=== PATIENT | female | born 1945 | race Caucasian/White ===

== ENCOUNTER 2023-01-04 10:30 | Outpatient (RCR) | payer MEDICARE, SELFPAY ==
--- NOTE | 2022-11-03 14:46 | PT.OPEX ---
PT [place] [facility] Eval INITIAL EVALUATION MEDICARE REQUIRES SIGNATURE PT [facility] Outpatient Eval Start: 11/03/22 12:22 Freq: Status: Active Protocol: Document 11/03/22 12:22 IRMA (Rec: 11/03/22 14:43 IRMA [id number]) E-signed By Goyo Aquino DPT Physical Therapy Outpatient Evaluation Insurance Information Recert Due Date 01/27/23 Insurance Name Medicare B Medical Diagnosis R hip arthritis R EDE DOS 11/10/22 Treating Diagnosis R hip pain muscle weakness Referring MD Timothy hyatt Subjective Subjective Hollie comes into clinic today 1 week prior to her R EDE surgery for a pre op visit. Has been dealing with the R hip pain on and off for about a year. At night she notices she has trouble getting in and out of bed. Along with getting dressed and undressed. Currently uses SPC but was not using prior to this year. Does have a garden where she wants to get back into that, is also wanting to play tennis some again. Does have 15 stairs in her house she has to do but has a railing on the L side. Her friend is going to stay with her/staying with her friend for several days after the surgery. Pain Comments 8/10 pain currently Date of Surgery (If applicable) 11/10/22 Current Work Status Light Duty Precautions Treatment Precautions/Contraindications hx of vertigo Objective Other/Pertinent Objective GAIT: ambulates in step to pattern, knee flexed with stance, using SPC on L HIP ROM Flexion: 95-100 degrees Internal Rotation: could not assess past 10 degrees due to pain External Rotation 20 degrees before pain abd LLE MMT: WNL on L deferred standard testing due to pain and guarding SLR unable due to pain minimal quad - assists using alt leg TX: long sitting quad set x10 w/5 sec isometric hold performed ankle pumps x10 supine glute sets x10 w/3-5 sec isometric hold supine hamstring sets x10 w/3- 5 sec isometric hold supine heel slide x 10 w/3-5 sec hold at end range holding for stretch standing hip abd with UE support x 10 B educated on frequency to perform HEP post operatively Assessment Assessment/Impression Pt is a 77 yr old female who presents with concerns of R hip pain. Patient also has notable objective findings including limited ROM, impaired balance, decreased strength also likely contributing to the problem. Patient is a good candidate for skilled therapy to target deficits described above. Skilled PT intervention is necessary for use of therapeutic exercise manual therapy, neuromuscular re- education, gait training, and therapeutic activity. Functional impairments include difficulty with: walking, standing stairs bed mobility and stairs . See appropriate sections of PT eval for complete list of goals and POC . D/C plan and criteria is for pt to achieve the goals as listed below or until max rehab potential is met. 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 2) Pt will improve hip AROM at least 0-90* for improved sit to stand transfers 3) Patient will ascend/descend at least 12 steps using single rail and reciprocal pattern to improve ease of mobility at home/community 4)Pt will ambulate at least 30 -45 minutes with least restrictive device, minimal antalgic gait for improved community mobility Coordination/Communication With Referral Source Treatment Plan/Direct Interventions Gait Training,Joint Mobilization,Manual Therapy, Neuromuscular Re-ed,Self-Care/ Home Management,Therapeutic Activities,Therapeutic Exercises Patient Will Be Discharged From Therapy Completion of LTG(s), Independent w/HEP Evaluation Billing Untimed Code Treatment Minutes 25 Complexity Low Certification Information Initial Certification Date 11/03/22 Ending Certification Date 01/27/23 Physician Comment/Change : Physician NPI Number #
--- NOTE | 2022-12-21 10:52 | PC.SOCIAL ---
Social work: Received call from pt regarding need for resources. Pt states she recently had hip surgery and is scheduled for surgery on her other hip at the end of December. Pt states she had a friend helping her after her previous surgery, but that this was challenging for her friend and did not work well for her. Pt is interested in hiring home health registered nurse care. Questions regarding home health registered nurse care were answered. Pt has resource list of home health registered nurse care agencies and will call to arrange for this help at home for her recovery after upcoming surgery. Pt is not interested in going to an assisted living or residential after surgery and hopes to return home with hired assistance. Pt was appreciative of information provided. Pt is aware of how to contact this social economist if she has additional questions or need for resources.
== END 2023-01-04 11:37 | disposition home or self-care (01) ==
PROVIDERS: PCP Family Medicine; Visit Provider Orthopaedic Surgery Sports Medicine
DX: M16.11 Unilateral primary osteoarthritis, right hip (principal); Z96.641 Presence of right artificial hip joint; M62.81 Muscle weakness (generalized); M25.551 Pain in right hip; Z51.89 Encounter for other specified aftercare
CPT/HCPCS: 97110; 97112; 97161; 97164; 97530

== ENCOUNTER 2023-01-17 09:52 | Outpatient (CLI) | payer MEDICARE, SELFPAY | END 2023-01-17 09:53 | disposition home or self-care (01) | PROVIDERS: PCP Family Medicine; Visit Provider Orthopaedic Surgery Sports Medicine | DX: Z01.818 Encounter for other preprocedural examination (principal) | CPT/HCPCS: 36415; 86850; 86900; 86901 ==

== ENCOUNTER 2023-01-19 07:20 | Day surgery (SDC) | payer MEDICARE, SELFPAY ==
[2023-01-19] VITALS (31 sets, daily range): BP systolic 92–139; BP diastolic 48–81; PULSE 61–99; RESP 12–18; TEMP 35.9–36.6; O2SAT 95–100; BMI 27.1
--- NOTE | 2023-01-19 07:32 | CRLHL7_ITS ---
For Patients: As a result of the Cures Act, medical imaging exams and procedure reports are released immediately into your electronic medical record. You may view this report before your referring provider. If you have questions, please contact your health care provider. Indication: s/p Total hip arthroplasty Technique: AP pelvis and lateral view left hip Findings/Impression: Hardware from a left total hip arthroplasty is in satisfactory position. Bone alignment is normal. No sign of acute fracture. Postop changes are within normal limits. Dictated by Wale Momin MD @ 01/19/2023 1:05:23 PM (Electronically Signed)
[2023-01-19] MEDS: ACETAMINOPHEN 500 MG TABLET 1000 MG PO ×3 (08:00→19:33)
[2023-01-19] MEDS: OXYCODONE (CR) 10 MG TAB.ER.12H PO (08:00)
[2023-01-19] MEDS: CELECOXIB 200 MG CAPSULE PO ×2 (08:00→21:36)
[2023-01-19] MEDS: SODIUM CHLORIDE 0.9 % (FLUSH) 10 ML SYRINGE IVF (08:10)
[2023-01-19] MEDS: LACTATED RINGERS 1000 ML 1,000 ML 100 ML IV (08:10)
--- NOTE | 2023-01-19 08:45 | CRLHL7_ITS ---
For Patients: As a result of the Cures Act, medical imaging exams and procedure reports are released immediately into your electronic medical record. You may view this report before your referring provider. If you have questions, please contact your health care provider. Indication: Hip replacement surgery Technique: AP hip fluoroscopic image. Fluoroscopy time 19.3 seconds. Findings/Impression: Hardware from a left total hip arthroplasty is in satisfactory position. Dictated by Wale Momin MD @ 01/19/2023 11:14:26 AM (Electronically Signed)
[2023-01-19] MEDS: MIDAZOLAM HCL 1 MG/ML inj IVP (08:53)
[2023-01-19] MEDS: fentaNYL 100 MCG/2 ML inj IVP (08:53)
--- NOTE | 2023-01-19 09:06 | SUR.PREOP ---
TIME?OUT:?0852 PT/Polly Devine RN/Dr. Jeronimo MDA?VERIFICATION?OF?SURGICAL?SITE left hip,?PROCEDURE,?AND?CONSENT OBTAINED?PRIOR?TO?INVASIVE?PROCEDURE.
[2023-01-19] MEDS: CEFAZOLIN 2 GM in 0.9 % SODIUM CHLORIDE Mini-bag 100 ML IVPB (09:35)
--- NOTE | 2023-01-19 09:47 | P.NB_ITS ---
Nerve Block Nerve Block Time Seen by Provider: 08:57 Date Seen: 01/19/23 Type of block requested by surgeon for post-operative analgesia: JAMESON/LFCN Side: left Time out performed: Yes Verification of patient name: Yes Verification of date of : Yes Site marking: site marked Name of person performing procedure: Jeronimo Continuous monitoring Was continuous monitoring of O2 sat, B/P, residential monitor, recorded every 15 minutes?: Yes Procedure Checklist: sterile prep, needles and gloves Ultrasound guided. Images saved: Yes Medications given in 5ml increments after negative aspiration: Ropivicaine %: 0.5 mL: 30 Needle gauge: 20 Decadron (mg): 10 Precedex (mcg): 25 Patient tolerated procedure well: Yes Additional comments: Needle noted below psoas tendon needle noted adjacent to LFCN Block Charges Block Charge (with Pro Fee): Other Periph Nerve Block Use of Ultrasound Machine for Block: Yes- US Guidance/pain block
--- NOTE | 2023-01-19 09:48 | W.ANESCHARGE ---
Anesthesia Charges Start Date/Time Anesthesia Start Date: 01/19/23 Anesthesia Start Time: 09:28 Stop Date/Time Anesthesia Stop Date: 01/19/23 Anesthesia Stop Time: 12:00 Summary Extremes of Age - Over 70 or under 1: MDA
--- NOTE | 2023-01-19 11:09 | PM.ORPRC ---
Procedure Note Date of procedure: 01/19/23 Procedure: PREOPERATIVE DIAGNOSIS: 1. Left hip osteoarthritis, severe, primary POSTOPERATIVE DIAGNOSIS: 1. Left hip osteoarthritis, severe, primary PROCEDURE: 1. Left total hip arthroplasty-anterior approach 2. 48873 - intraoperative fluoroscopy up to 1 hour. SURGEON: Timothy Ignacio MD. CORPORATE DIRECTOR OF PHARMACY: Brenna Guan PA-c; JAMIA Yang - Of note, a skilled mortgage assistant was critical for this case to aid in patient positioning, tissue retraction, limb manipulation/positioning, dislocation/relocation, patient safety, and closure. ANESTHESIA: Spinal anesthetic EBL: 300 mL IMPLANTS: DePuy J&J uncemented total hip [place] cup size 48, hole eliminator, +0 neutral liner Actis stem, standard offset, size 5 +5 mm ceramic 32mm head. COMPLICATIONS: None evident INDICATIONS: The patient is a pleasant 77-year-old female who has experienced severe left hip pain and difficulty bearing weight. Workup included x-rays which revealed severe osteoarthrosis in the hip. Given the deformity, the dysfunction, and the pain, as well as the failure of nonoperative management, recommendation was made for surgery. FINDINGS: Full-thickness chondral loss broadly throughout the femoral head. Significant osteophytosis around the femoral head/neck junction. Small effusion upon entering the joint. DESCRIPTION OF PROCEDURE: Following a thorough discussion of risks, benefits, and alternatives consent was obtained and the left hip was marked. The patient was brought to the operating room and placed supine on the operating table. Induction of anesthesia was undertaken. 1 g IV Ancef and 1 g tranexamic acid was administered within 1 hr of incision preoperatively. Proper time-out was performed identifying proper patient, site, procedure. The operative extremity was prepped and draped in the appropriate sterile fashion using ChloraPrep after the patient was positioned on the [place] table with head in neutral alignment and all bony prominences well padded. C-arm fluoroscopic imaging was utilized to confirm proper pelvis rotation and position, and to get true AP films of both the contralateral left, and the affected left hip. This is for comparison. A longitudinal incision was made starting approximately 1 cm distal to the ASIS, and 3-4 cm lateral. The incision was extended distally aiming toward the lateral border the patella. Sharp incision through skin and bovie cautery through the subcutaneous tissue allowed identification of the TFL fascia. This was sharply divided, and the fascia bluntly released from the muscle fibers as we dissected medial. Upon coming to the medial border, we were able to retract the TFL laterally, and penetrated the deeper fascia and identify the crossing circumflex vessels. These were ligated/cauterized. The rectus was elevated from the capsule, and retractors placed laterally and medially along the femoral neck to help with visualization of the capsule. We then performed an inverted T capsulotomy. The capsule was tagged for later repair. Retractors were placed inside the capsule. The femoral neck was visualized after releasing medially down to the lesser trochanter, along the saddle laterally, and up onto the acetabulum. The femoral neck cut was made in line with our preoperative templating. The head was removed in a single piece, and sized. We turned our attention to acetabular preparation. Initially, the labrum was resected from around the perimeter, the pulvinar was excised, allowing us to visualize the false wall. We started the reaming with a 43 mm reamer. This was medialized down to the true wall. We then enlarged our reamers sequentially up to one size less than the selected cup size. We trialed at the same size and found it to have an excellent fit. The selected cup was then opened, inserted, and impacted in line with the goal of 40-45? of abduction, and 20-25? of anteversion. This was confirmed on C-arm fluoroscopic imaging to be in the appropriate/goal position. Once the cup was placed we placed a hole eliminator and a liner consistent with preop planning. Attention was turned to the femoral preparation. The limb was extended, externally rotated, and adducted. The posteromedial capsule was released, as retractors were placed allowing excellent access to the proximal femur. Initially a box sealing machine feeder was followed by canal finder followed by various broaches. We broached sequentially up to size noted above, found it to have excellent rotational control, and trialing various heads and necks, revealed that appropriate neck offset, and the above noted head size provided the greatest stability, and episcopalian of length, and offset. C-arm fluoroscopic imaging confirmed position of the stem, as well as leg lengths, which were compared with the pre procedure all fluoroscopic images. Trial implants were removed, the real femoral stem inserted, as was the ceramic head. After reducing, the leg was placed through range of motion and stability was confirmed anterior, posterior, and lateral. A 3 min Betadine soak was then performed, and thorough irrigation with normal saline followed. Closure of the capsule was performed with #1 PDS. Bleeding was confirmed to be controlled at this stage, and the TFL fascia was closed with #0 strata fix. Subcutaneous, and subcuticular closure was performed with 2-0 Vicryl and 4-0 Monocryl, respectively. Dressings were applied, and the patient was awoken from anesthesia and transferred the PACU in stable condition. A skilled mortgage assistant was critical for this case to aid in patient positioning, tissue retraction, proximal femur exposure, limb manipulation/positioning, dislocation/relocation, patient safety, and closure. PLAN: 1. Weight bear as tolerated operative extremity. 2. 23 hr perioperative antibiotics. 3. Ice. 4. PT/OT consults for ambulation assistance/mobility education. 5. Social work consult for discharge planning. 6. DVT prophylaxis with at SCDs, Curtis Hose, and Xarelto x5 days followed by aspirin for a total of 1 month..
--- NOTE | 2023-01-19 11:24 | SUR.OPER ---
TRANSFERRED PATIENT TO TRIAL OPERATING TABLE AND COULDN'T POSITION PATIENT'S LEFT ARM WITHOUT PATIENT HAVING PAIN. SURGEON AND P.A. DECIDED TO CHANGE OPERATING TABLE BACK TO THE HANA TABLE.
--- NOTE | 2023-01-19 12:00 | W.ANESCHARGE ---
Anesthesia Charges Start Date/Time Anesthesia Start Date: 01/19/23 Anesthesia Start Time: 09:28 Stop Date/Time Anesthesia Stop Date: 01/19/23 Anesthesia Stop Time: 12:00
--- NOTE | 2023-01-19 12:13 | PM.IMPN1 ---
Progress Note: A&P Assessment and plan (1) Osteoarthritis of left hip: Problem details: severe Status: Chronic Assessment and Plan: 1) Left EDE -pain control; diet; dvt ppx per surgery Subjective Date Seen: 01/19/23 Interval history: POSTOPERATIVE DIAGNOSIS: 1. Left hip osteoarthritis, severe, primary ANESTHESIA: Spinal anesthetic EBL: 300 mL the patient is stable following surgery denies chest pain, sob, nausea, vomiting tolerating diett Exam Narrative: Exam Narrative: Gen: no acute distress HEENT: NCAT EOMI mmm CV: RRR normal s1 s2 Lungs: CTAB Abd: Soft,nt, nd Neuro: Alert, oriented, CN grossly intact; nonfocal screening?exam Psych: appropriate affect MSK: age appropriate muscle mass Skin; Warm, dry no rash on face Const: Vital Signs, click to edit/add: Vital Signs - 24 hr 01/19/23 08:29 01/19/23 08:53 01/19/23 08:55 Temperature 97.5 F L Pulse Rate 74 69 73 Respiratory Rate 16 16 16 Blood Pressure 126/71 127/55 L 119/48 L Pulse Oximetry 97 100 98 Oxygen Delivery Me thod Room Air Nasal Cannula Nasal Cannula Oxygen Flow Rate 2 2 01/19/23 09:00 01/19/23 09:15 01/19/23 11:57 Temperature 97.6 F Pulse Rate 64 61 85 Respiratory Rate 16 16 12 Blood Pressure 106/62 94/55 L Pulse Oximetry 98 98 94 Oxygen Delivery Me thod Nasal Cannula Nasal Cannula Oxygen Flow Rate 2 2 01/19/23 11:58 01/19/23 12:00 01/19/23 12:02 Temperature Pulse Rate 82 86 87 Respiratory Rate 14 12 12 Blood Pressure 110/72 95/71 Pulse Oximetry 97 97 99 Oxygen Delivery Me thod Oxygen Flow Rate 01/19/23 12:03 01/19/23 12:07 Temperature Pulse Rate 92 85 Respiratory Rate Blood Pressure 98/74 Pulse Oximetry 99 100 Oxygen Delivery Me thod Oxygen Flow Rate
[2023-01-19] MEDS: HYDROmorphone 0.5 mg/0.5 ml inj IVP (13:34)
[2023-01-19] MEDS: CEFAZOLIN 1 GM in 0.9 % SODIUM CHLORIDE Mini-bag 100 ML IVPB ×2 (13:59→21:37)
[2023-01-19] MEDS: LACTATED RINGERS 1000 ML 1,000 ML 75 ML IV (14:21)
[2023-01-19] MEDS: OXYCODONE 5 MG TABLET PO ×2 (16:11→21:41)
--- NOTE | 2023-01-19 16:34 | PC.NURSE ---
Pt arrived in her hospital bed to room 274 from PACU @ 1250 s/p LTHAA with Dr. Ignacio. Please see initial assessment from PACU and frequent post op VS. Pt had no pain on arrival to floor. Later she rated her pain 5-6 and prn dilaudid 0.5 mg given by RN. Pt tolerated CL lunch w/o nausea. Tylenol ES scheduled dose provided and IV Ancef infused w/o difficulty. Pt very talkative and wide awake on arrival to floor. I talk alot when I'm anxious, calming patch applied with relief. Friend Mahogany supportive and vigilant at bedside. Please see hourly rounding sheet for nsg interventions. PT in to do exercises and walk patient to the bathroom just prior to shift change w/GB and walker. PHI form completed. Belongings list completed preop. Report to Tangela PARKER and Yovana PARKER for evening shift.
--- NOTE | 2023-01-19 20:55 | PC.NURSE ---
End of shift- Post LTH- VSS on RA, HR trending in 90's. Dressing CDI with no drainage present. Ice to op site. Some swelling around incision site. Pt voided 2x this shift for a total of 800 out of clear dark yellow urine. Up to BR SBA w/ gait belt and RW.Pt recieved PRN oxy 1x this shift along with scheduled Tylenol. Pt rated her pain at 4/10 then PRN oxy was given. When scheduled Tylenol was given pt reported 2/10 pain.Tolerating food and liquids with no nausea. Saline locked after dinner. IV abx infused @2200.
[2023-01-19] MEDS: SENNOSIDES 1 TAB TABLET 2 TAB PO (21:36)
[2023-01-20 00:44] VITALS: BP 109/68; PULSE 84; RESP 18; TEMP 36.5; O2SAT 96
[2023-01-20] MEDS: ACETAMINOPHEN 500 MG TABLET 1000 MG PO ×2 (00:46→08:25)
[2023-01-20] MEDS: OXYCODONE 5 MG TABLET PO ×2 (03:31→10:17)
[2023-01-20 03:45] VITALS: BP 126/73; PULSE 89; RESP 16; TEMP 36.4; O2SAT 98
--- NOTE | 2023-01-20 05:36 | PC.NURSE ---
[id number]: A1/walker/GB. Active ice to op site. CMS intact. Dressing to L. hip C/D/I. PRN Oxycodone x1 for pain management. Denies N/V. Eating and voiding.
[2023-01-20 06:43] LABS: Basophils Percent Auto 0.1 % (0.0-3.0); Hemoglobin* 10.9 gm/dL (12.0-16.0); Immature Granulocytes Pct Auto 1.1 %; Lymphocytes Percent Auto 6.8 % (20-44); Mean Corpuscular HGB Conc 33 gm/dL (32-36); Mean Corpuscular Hemoglobin 32 pg (26-34); Mean Corpuscular Volume 97 fL (80-100); Platelet Count* 234 K/uL (140-440); RDW Coefficient of Variation % 12.7 % (11.5-15.5); Red Blood Count 3.42 m/uL (4.00-5.20); White Blood Count* 17.64 K/uL (4.50-11.00)
[2023-01-20 06:54] LABS: Slide Review Reflex No
[2023-01-20 06:55] LABS: Potassium* 4.6 mmol/L (3.6-5.1); Sodium* 135 mmol/L (135-149)
[2023-01-20 06:58] LABS: Creatinine* 0.9 mg/dL (0.5-1.5); Est. Creatinine Clearance* 35.55; Estimated Glomerular Filt Rate 66 ml/min
[2023-01-20 06:59] LABS: Blood Urea Nitrogen* 22 mg/dL (7-30)
--- NOTE | 2023-01-20 07:58 | REH.OT ---
OT: Order received, chart reviewed, when met with patient she reports she is not participating in therapy this morning, and that she called ahead to cancel OT/PT for this morning because she is managing independently. Explained role of OT post op, DME and patient declines participation and plans to have 24 hour caregivers again. Provided AE resources patient requested.
[2023-01-20] MEDS: SENNOSIDES 1 TAB TABLET 2 TAB PO (08:24)
[2023-01-20] MEDS: CELECOXIB 200 MG CAPSULE PO (08:25)
[2023-01-20] MEDS: RIVAROXABAN 10 MG TABLET PO (08:25)
[2023-01-20 08:32] VITALS: BP 107/61; PULSE 74; PULSE 99; RESP 16; TEMP 36.6; O2SAT 98
--- NOTE | 2023-01-20 09:17 | PM.ORPN ---
Subjective Subjective Time Seen by Provider: 08:45 Date Seen: 01/20/23 Principal diagnosis: Status post left hip replacement Interval history: Hollie is comfortable this morning. She will be discharging to home. She has friends lined up to help her for the next 2 weeks. Ortho Exam Narrative Exam Narrative: Alert and oriented x3. Patient is in no acute distress. Converses without labored breathing. Hearing is grossly intact. Ambulates with a walker. Examination of the left hip shows the dressing is intact. No erythema or warmth or sign of infection. Mild soft tissue edema. Mild thigh tenderness. Bilateral calves are soft and nontender. CMS intact left lower extremity. Const Vital Signs, click to edit/add: Vital Signs - 24 hr 01/19/23 11:57 01/19/23 11:58 01/19/23 12:00 Temperature 97.6 F Pulse Rate 85 82 86 Pulse Rate [Left Apical] Pulse Rate [Pulse Oximeter] Respiratory Rate 12 14 12 Blood Pressure 110/72 Blood Pressure [Right Arm] Pulse Oximetry 100 97 97 Oxygen Delivery Method Nasal Cannula Room Air Oxygen Flow Rate 2 01/19/23 12:02 01/19/23 12:03 01/19/23 12:07 Temperature Pulse Rate 87 92 85 Pulse Rate [Left Apical] Pulse Rate [Pulse Oximeter] Respiratory Rate 12 Blood Pressure 95/71 98/74 Blood Pressure [Right Arm] Pulse Oximetry 99 99 100 Oxygen Delivery Method Room Air Room Air Room Air Oxygen Flow Rate 01/19/23 12:08 01/19/23 12:10 01/19/23 12:12 Temperature Pulse Rate 87 85 84 Pulse Rate [Left Apical] Pulse Rate [Pulse Oximeter] Respiratory Rate 12 Blood Pressure 107/67 109/58 L Blood Pressure [Right Arm] Pulse Oximetry 99 100 99 Oxygen Delivery Method Room Air Oxygen Flow Rate 01/19/23 12:15 01/19/23 12:17 01/19/23 12:23 Temperature Pulse Rate 81 78 81 Pulse Rate [Left Apical] Pulse Rate [Pulse Oximeter] Respiratory Rate 12 Blood Pressure 115/75 111/66 Blood Pressure [Right Arm] Pulse Oximetry 99 100 97 Oxygen Delivery Method Room Air Oxygen Flow Rate 01/19/23 12:26 01/19/23 12:31 01/19/23 12:36 Temperature Pulse Rate 80 74 68 Pulse Rate [Left Apical] Pulse Rate [Pulse Oximeter] Respiratory Rate 12 12 12 Blood Pressure 110/69 92/69 108/71 Blood Pressure [Right Arm] Pulse Oximetry 97 99 98 Oxygen Delivery Method Room Air Room Air Room Air Oxygen Flow Rate 2 01/19/23 12:50 01/19/23 13:00 01/19/23 13:15 Temperature 96.7 F L Pulse Rate 63 Pulse Rate [Left Apical] 78 76 Pulse Rate [Pulse Oximeter] 78 76 Respiratory Rate 14 14 14 Blood Pressure Blood Pressure [Right Arm] 126/71 139/76 Pulse Oximetry 99 Oxygen Delivery Method Room Air Room Air Room Air Oxygen Flow Rate 2 01/19/23 13:30 01/19/23 13:45 01/19/23 14:00 Temperature 96.8 F L Pulse Rate Pulse Rate [Left Apical] 82 84 78 Pulse Rate [Pulse Oximeter] 98 96 78 Respiratory Rate 14 16 14 Blood Pressure Blood Pressure [Right Arm] 135/76 120/77 128/78 Pulse Oximetry 98 96 96 Oxygen Delivery Method Room Air Room Air Room Air Oxygen Flow Rate 2 2 01/19/23 14:30 01/19/23 16:07 01/19/23 17:00 Temperature 97.2 F L 97.5 F L Pulse Rate Pulse Rate [Left Apical] 87 Pulse Rate [Pulse Oximeter] 87 95 99 Respiratory Rate 16 16 16 Blood Pressure Blood Pressure [Right Arm] 128/81 115/74 111/78 Pulse Oximetry 96 96 97 Oxygen Delivery Method Room Air Room Air Room Air Oxygen Flow Rate 01/19/23 18:01 01/19/23 19:30 01/20/23 00:44 Temperature 97.5 F L 97.9 F 97.7 F Pulse Rate Pulse Rate [Left Apical] 84 Pulse Rate [Pulse Oximeter] 95 93 Respiratory Rate 18 18 18 Blood Pressure Blood Pressure [Right Arm] 110/68 125/70 109/68 Pulse Oximetry 95 95 96 Oxygen Delivery Method Room Air Room Air Oxygen Flow Rate 01/20/23 03:45 01/20/23 08:32 01/20/23 08:32 Temperature 97.6 F 97.8 F Pulse Rate Pulse Rate [Left Apical] 74 Pulse Rate [Pulse Oximeter] 89 74 99 Respiratory Rate 16 16 16 Blood Pressure Blood Pressure [Right Arm] 126/73 107/61 Pulse Oximetry 98 98 Oxygen Delivery Method Room Air Room Air Oxygen Flow Rate 2 Assessment and Plan Assessment and plan (1) Status post left hip replacement: Problem details: Plan for discharge is today to home if they meet discharge criteria. DVT prophylaxis includes Xarelto 10 mg daily for total of 5 days, then aspirin 81 mg twice daily for 30 days, Curtis stockings x1 month may remove for 1 hr per day, frequent ambulation Remove dressing 1 week. Observe wound and phone Orthopedics with any questions or concerns Use Ice on operative hip unrestricted. Return to clinic in 1 week with PA for a wound check Return to clinic in [address] Ignacio Minimize narcotic use. Wean off and discontinue soon as possible. Activities as tolerated. No strenuous activity. Attend outpt PT Status: Acute
--- NOTE | 2023-01-20 10:35 | PC.NURSE ---
REVIEWED D/C INSTRUCTIONS WITH PATIENT INCLUDING MEDICATION REGIMEN, PAIN CONTROL, S/S OF INFECTION, DVT PROPHYLAXIS, SAFETY. PT VERBALIZED UNDERSTANDING. BELONGINGS FORM REVIEWED AND SIGNED. PT DENIED ANY FURTHER QUESTIONS AT D/C. PT DISCHARGED AT 1030 HOME WITH FRIEND VIA W/C.
== END 2023-01-20 10:30 | disposition home or self-care (01) ==
LOC: OR 07:21 → MEDSURG 07:23
PROVIDERS: PCP Family Medicine; Visit Provider Orthopaedic Surgery Sports Medicine
PROC: (CPT 27130; principal; 2023-01-19 08:45)
DX: M16.12 Unilateral primary osteoarthritis, left hip (principal); G89.18 Other acute postprocedural pain
CPT/HCPCS: 27130; 01214; 36415; 64450; 73501; 76000; 76942; 82565; 84132; 84295; 84520; 85025; 97110; 97116; 97161; 99100; A9270; C1776; J0690; J1100; J1170; J2250; J2405; J2704; J2795; J3010; J7120

== ENCOUNTER 2023-05-12 10:15 | Outpatient (RCR) | payer MEDICARE, SELFPAY ==
--- NOTE | 2023-01-28 11:26 | PT.OPEX ---
[facility] initial eval requires signature [facility] Start: 01/28/23 07:34 Freq: Status: Active Protocol: Document 01/28/23 07:36 IRMA (Rec: 01/28/23 11:24 IRMA [id number]) E-signed By BARBER [facility] Evaluation Insurance Information Recert Due Date 04/23/23 Insurance Name Medicare B Medical Diagnosis s/p L gisele - dos 01/19/23 Treating Diagnosis left hip pain and weakness Referring MD baylee hyatt Subjective Subjective Hollie returns to PT after having her L GISELE on 01/19/23. Overall she states she is doing a lot better with things ; able to clean, walk in the garden, etc. Still notes that she is still having trouble with donning socks and shoes. Is curious when she can begin driving. Pain Comments 07/06 with walking Date of Surgery (If applicable) 01/19/23 Current Work Status Retired Objective Other/Pertinent Objective GAIT: increased pace, using fww minimal UE support, without AD narrow [place], decreased stride length HIP ROM Flexion: 65 arom, prom +5 Extension: neutral Internal Rotation: 10 degrees before guarding External Rotation 26 degrees before guarding Abduction LLE MMT: slr flexion: can perform with extensor lag of 5-8 degrees increased lumbar lordosis to perform quad set: good quality contraction TX: bridge x 10, bridge with banded abd x 10, bridge with stagger x 10 clamshell ag x 10 slr flexion trialed x 5 transverse abdominal setting x 10 LAQ x 10 seated marching x 10 recumbent bike x 6 min Assessment Assessment/Impression POST-OP Patient presents with signs and symptoms consistent with diagnosis of L GISELE, s/p 1 week post operative. Rehab potential is good. Ple[place]z impairments include: decreased ROM and strength of the extremity, poor balance and compensatory gait patterning, pain/limitations with functional activities such as squatting, walking, and climbing stairs. Skilled PT is required to address these pleitez impairments and to provide and progress with an appropriate home exercise program. Plan of Care Rehabilitation Potential Good Physical Therapy Goals GISELE GOALS STG (within 5 weeks) 1) Pt will ambulate at least 30 minutes with SPC device, minimal antalgic gait for improved community mobility LTG: (within 10 weeks) 1) Pt will be indep with HEP for residential management of pain/symptoms 2) Pt will improve hip AROM at least 0-90* for improved sit to stand transfers 3) Patient will ascend/descend at least 12 steps using single rail and reciprocal pattern to improve ease of mobility at home/community 4)Pt will ambulate at least 45 -60 minutes with no device, minimal antalgic gait for improved community mobility Coordination/Communication With Referral Source Treatment Plan/Direct Interventions Gait Training,Joint Mobilization,Manual Therapy, Neuromuscular Re-ed,Self-Care/ Home Management,Therapeutic Activities,Therapeutic Exercises Frequency/Duration 1-2 visits a week for 6-14 weeks Patient Will Be Discharged From Therapy Completion of LTG(s), Independent w/HEP, Independently Progressing Evaluation Billing Untimed Code Treatment Minutes 15 Complexity Low Certification Information Physician Comment/Change : Physician NPI Number #
== END 2023-05-24 13:38 | disposition home or self-care (01) ==
PROVIDERS: PCP Family Medicine; Visit Provider Orthopaedic Surgery Sports Medicine
DX: M16.12 Unilateral primary osteoarthritis, left hip (principal); Z51.89 Encounter for other specified aftercare
CPT/HCPCS: 97110; 97112; 97140; 97161; 97530; 97535